=== PATIENT | male | born 1990 | race Hispanic/Latino ===

== ENCOUNTER 2023-06-16 11:04 | Emergency (ER) | payer SELFPAY ==
[~2023-06-16] VITALS: Ht 165.1 cm; Wt 80.7 kg
[2023-06-16 13:27] VITALS: BP 119/71; PULSE 75; RESP 17; TEMP 98; O2SAT 99
== END 2023-06-16 13:30 | disposition home or self-care (01) ==
LOC: ER 11:26
DX: G40.909 Epilepsy, unspecified, not intractable, without status epilepticus (principal)
CPT/HCPCS: 99283

== ENCOUNTER 2023-08-04 03:01 | Emergency (ER) | payer SELFPAY ==
[~2023-08-04] VITALS: Ht 170.2 cm; Wt 68.0 kg
[2023-08-04] MEDS ORDERED: LORAZEPAM INJ 2 MG/ML VIAL ONE (03:36)
[2023-08-04] MEDS: LORAZEPAM INJ 2 MG/ML VIAL IV ONE (03:48)
[2023-08-04 03:50] LABS: BASOPHILS % 0.5 % (0.0-1.0); EOSINOPHILS # (AUTO) 0.2 (0.0-0.4); EOSINOPHILS % 2.4 % (0.0-6.0); HEMATOCRIT 42.3 % (38.2-49.6); HEMOGLOBIN 13.5 g/dL (14.0-18.0); LYMPHOCYTES # (AUTO) 3.1 (1.0-3.2); LYMPHOCYTES % 35.5 % (18.0-39.1); MEAN CORPUSCULAR HEMOGLOBIN 30.3 pg (28-32); MEAN CORPUSCULAR HGB CONC 31.9 g/dL (31-35); MEAN CORPUSCULAR VOLUME 95.1 fL (81-99); MONOCYTES # (AUTO) 1.1 (0.2-0.8); MONOCYTES % 12.3 % (4.4-11.3); NEUTROPHILS # (AUTO) 4.3 (2.1-6.9); NEUTROPHILS % 48.7 % (38.7-80.0); PLATELET COUNT 360 x10e3/uL (140-360); RED BLOOD COUNT 4.45 x10e6/uL (4.3-5.7); RED CELL DISTRIBUTION WIDTH 13.1 % (11.7-14.4); WHITE BLOOD COUNT 8.84 x10e3/uL (4.8-10.8)
[2023-08-04] MEDS: SODIUM CHLORIDE 0.9% 1000ML 1,000 ML IV ONE (04:02)
[2023-08-04 04:12] LABS: ALANINE AMINOTRANSFERASE 21 IU/L (0-55); ALBUMIN 3.7 g/dL (3.5-5.0); ALBUMIN/GLOBULIN RATIO 1.3 (0.8-2.0); ALKALINE PHOSPHATASE 50 IU/L (40-150); ANION GAP 16.3 mmol/L (8-16); BILIRUBIN,TOTAL 0.2 mg/dL (0.2-1.2); BLOOD UREA NITROGEN 12 mg/dL (7-26); BUN/CREATININE RATIO 12 (6-25); CALCIUM 9.2 mg/dL (8.4-10.2); CARBON DIOXIDE 23 mmol/L (22-29); CHLORIDE 109 mmol/L (98-107); CREATINE KINASE 1750 IU/L (30-200); CREATININE, SERUM 1.04 mg/dL (0.72-1.25); EST GLOMERULAR FILTRATION RATE 96 ML/MIN (>=60); GLUCOSE 96 mg/dL (74-118); POTASSIUM 4.3 mmol/L (3.5-5.1); SODIUM 144 mmol/L (136-145); TOTAL PROTEIN 6.5 g/dL (6.5-8.1)
[2023-08-04 04:32] LABS: TROPONIN I < 0.001 ng/mL (0-0.300)
[2023-08-04] MEDS: DIPHENHYDRAMINE HCL INJ 50 MG/ML VIAL IV ONE (04:35)
[2023-08-04] MEDS: VALPROATE SOD INJ 500 MG in SODIUM CHLORIDE 0.9% 100 ML INJ ONE (04:35)
[2023-08-04 04:59] VITALS: O2SAT 98
[2023-08-04] MEDS: SODIUM CHLORIDE 0.9% 1000ML 1,000 ML IV SCH (06:07)
== END 2023-08-04 07:44 | disposition other institution (70) ==
LOC: ER 03:05 → MERGE 03:05 → ER 07:44
DX: F44.5 Conversion disorder with seizures or convulsions (principal); M62.82 Rhabdomyolysis
CPT/HCPCS: 36415; 71045; 80053; 80164; 82550; 82948; 84484; 85025; 99285; J1200; J2060; J7030; J7050

== ENCOUNTER 2024-07-10 11:18 | Emergency (ER) | payer OTHER ==
[~2024-07-10] VITALS: Ht 165.1 cm; Wt 81.6 kg
[2024-07-10] MEDS ORDERED: MIDAZOLAM HCL 5MG/ML 2ML VIAL IV STA (11:20)
[2024-07-10] MEDS: SODIUM CHLORIDE 0.9% 1000ML 1,000 ML IV STA (12:00)
[2024-07-10 12:01] LABS: BASOPHILS % 0.9 % (0.0-1.0); EOSINOPHILS # (AUTO) 0.2 (0.0-0.4); EOSINOPHILS % 4.6 % (0.0-6.0); HEMATOCRIT 43.2 % (38.2-49.6); HEMOGLOBIN 14.5 g/dL (14.0-18.0); LYMPHOCYTES # (AUTO) 1.6 (1.0-3.2); LYMPHOCYTES % 37.4 % (18.0-39.1); MEAN CORPUSCULAR HEMOGLOBIN 31.3 pg (28-32); MEAN CORPUSCULAR HGB CONC 33.6 g/dL (31-35); MEAN CORPUSCULAR VOLUME 93.1 fL (81-99); MONOCYTES # (AUTO) 0.5 (0.2-0.8); MONOCYTES % 11.2 % (4.4-11.3); NEUTROPHILS % 45.7 % (38.7-80.0); PLATELET COUNT 254 x10e3/uL (140-360); RED BLOOD COUNT 4.64 x10e6/uL (4.3-5.7); RED CELL DISTRIBUTION WIDTH 13.4 % (11.7-14.4); WHITE BLOOD COUNT 4.39 x10e3/uL (4.8-10.8)
[2024-07-10 12:02] VITALS: PULSE 69; RESP 13; TEMP 96.8
[2024-07-10 12:16] LABS: ALBUMIN 3.8 g/dL (3.5-5.0); ALBUMIN/GLOBULIN RATIO 1.2 (0.8-2.0); ANION GAP 12.9 mmol/L (8-16); BILIRUBIN,TOTAL 0.6 mg/dL (0.2-1.2); CALCIUM 9.2 mg/dL (8.4-10.2); CREATININE, SERUM 0.98 mg/dL (0.72-1.25); POTASSIUM 3.9 mmol/L (3.5-5.1); TOTAL PROTEIN 6.9 g/dL (6.5-8.1)
[2024-07-10 12:22] LABS: TROPONIN I 0.007 ng/mL (0-0.300)
[2024-07-10 14:00] VITALS: BP 94/76
[2024-07-10 14:03] VITALS: PULSE 55; RESP 12; TEMP 97.8; O2SAT 95
[2024-07-10] MEDS: LORAZEPAM INJ 2 MG/ML VIAL IV STA (14:34)
== END 2024-07-10 14:33 | disposition home or self-care (01) ==
LOC: ER 11:21
DX: R56.9 Unspecified convulsions (principal)
CPT/HCPCS: 36415; 70450; 80053; 82550; 83690; 83880; 84484; 85025; 93005; 99284; J2060

== ENCOUNTER 2024-07-19 00:48 | Emergency (ER) | payer OTHER ==
[~2024-07-19] VITALS: Ht 165.1 cm; Wt 81.6 kg
[2024-07-19 00:50] VITALS: TEMP 98.6
[2024-07-19 01:30] LABS: BASOPHILS % 0.4 % (0.0-1.0); EOSINOPHILS # (AUTO) 0.1 (0.0-0.4); EOSINOPHILS % 1.4 % (0.0-6.0); HEMATOCRIT 39.6 % (38.2-49.6); HEMOGLOBIN 13.4 g/dL (14.0-18.0); LYMPHOCYTES # (AUTO) 1.9 (1.0-3.2); LYMPHOCYTES % 21.3 % (18.0-39.1); MEAN CORPUSCULAR HEMOGLOBIN 31.2 pg (28-32); MEAN CORPUSCULAR HGB CONC 33.8 g/dL (31-35); MEAN CORPUSCULAR VOLUME 92.1 fL (81-99); MONOCYTES # (AUTO) 0.8 (0.2-0.8); MONOCYTES % 8.4 % (4.4-11.3); NEUTROPHILS # (AUTO) 6.1 (2.1-6.9); NEUTROPHILS % 68.2 % (38.7-80.0); PLATELET COUNT 270 x10e3/uL (140-360); RED CELL DISTRIBUTION WIDTH 13.2 % (11.7-14.4)
[2024-07-19 01:50] LABS: CREATINE KINASE 361 IU/L (30-200)
[2024-07-19 01:52] LABS: ALBUMIN 3.8 g/dL (3.5-5.0); ALBUMIN/GLOBULIN RATIO 1.3 (0.8-2.0); ANION GAP 14.9 mmol/L (8-16); BILIRUBIN,TOTAL 0.4 mg/dL (0.2-1.2); CALCIUM 9.6 mg/dL (8.4-10.2); CREATININE, SERUM 1.1 mg/dL (0.72-1.25); POTASSIUM 3.9 mmol/L (3.5-5.1); TOTAL PROTEIN 6.7 g/dL (6.5-8.1)
[2024-07-19] MEDS: SODIUM CHLORIDE 0.9% 1000ML 1,000 ML IV ONE (01:54)
[2024-07-19 03:19] LABS: TROPONIN I < 0.001 ng/mL (0-0.300)
[2024-07-19 05:15] VITALS: PULSE 76; RESP 18; O2SAT 100
== END 2024-07-19 06:31 | disposition home or self-care (01) ==
LOC: ER 00:53
DX: G40.909 Epilepsy, unspecified, not intractable, without status epilepticus (principal); F17.210 Nicotine dependence, cigarettes, uncomplicated
CPT/HCPCS: 36415; 70450; 80053; 80320; 82550; 84484; 85025; 93005; 99284; J7030

== ENCOUNTER 2024-07-28 16:33 | Emergency (ER) | payer OTHER ==
[~2024-07-28] VITALS: Ht 165.1 cm; Wt 74.8 kg
[2024-07-28 16:40] VITALS: PULSE 99; RESP 20; O2SAT 99
== END 2024-07-28 17:00 | disposition home or self-care (01) ==
LOC: ER 16:38
DX: G40.909 Epilepsy, unspecified, not intractable, without status epilepticus (principal)
CPT/HCPCS: 99283

== ENCOUNTER 2025-03-19 19:29 | Emergency (ER) | payer OTHER | END 2025-03-19 19:55 | disposition left against medical advice (07) | LOC: ER 19:48 | DX: M25.512 Pain in left shoulder (principal) ==